=== PATIENT | female | born 1990 | race Two or more races ===

== ENCOUNTER 2024-01-11 19:09 | Emergency (ER) | payer OTHER ==
[~2024-01-11] VITALS: Ht 175.3 cm; Wt 114.8 kg
== END 2024-01-11 21:44 | disposition home or self-care (01) ==
LOC: ER 19:09
DX: J06.9 Acute upper respiratory infection, unspecified (principal); R53.81 Other malaise; Z20.822 Contact with and (suspected) exposure to COVID-19; Z88.0 Allergy status to penicillin